=== PATIENT | female | born 1950 | race Caucasian/White ===

== ENCOUNTER 2018-12-12 14:50 | Day surgery (SDC) | payer OTHER ==
[2018-12-12] MEDS ORDERED: ACETAMINOPHEN 500 MG TAB PO ONE (15:40)
[2018-12-12] MEDS ORDERED: ceFAZolin 2 GM/DEXTROSE 100 ML IV ONE (15:40)
--- NOTE | 2018-12-12 17:11 | PDANEPAE ---
ANE History of Present Illness T12 compression fracture here for kyphoplasty ANE Past Medical History - Cardiovascular History Hx Hypertension: No Hx Arrhythmias: No Hx Chest Pain: No Hx Coronary Artery / Peripheral Vascular Disease: No Hx CHF / Valvular Disease: No Hx Palpitations: No - Pulmonary History Hx COPD: No Hx Asthma/Reactive Airway Disease: No Hx Recent Upper Respiratory Infection: No Hx Oxygen in Use at Home: No Hx Sleep Apnea: No Sleep Apnea Screening Result - Last Documented: Negative - Neurologic History Hx Cerebrovascular Accident: No Hx Seizures: No Hx Dementia: No - Endocrine History Hx Diabetes: No - Renal History Hx Renal Disorders: No - Liver History Hx Hepatic Disorders: No - Neurological & Psychiatric Hx Hx Neurological and Psychiatric Disorders: No - Cancer History Hx Cancer: Yes Cancer History Comment: breast ca- mastectomy only will start chemo after back procedure. 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 steriod injections previously ANE Review of Systems Review of Systems: - Exercise capacity METS (RN): 4 METS ANE Patient History - Allergies Allergies/Adverse Reactions: aspirin Allergy (Verified 12/12/18 16:21) nausea oxycodone Allergy (Verified 12/12/18 16:21) nausea - Home Medications Home Medications: Linzess 12/11/18 [Last Taken Unknown] Meloxicam 12/11/18 [Last Taken 12/11/18] Methocarbamol 12/11/18 [Last Taken Unknown] morphINE 12/11/18 [Last Taken Unknown] - NPO status NPO Status: no food or drink >8 hours NPO Since - Liquids (Date): 12/12/18 NPO Since - Liquids (Time): 13:00 NPO Since - Solids (Date): 12/12/18 NPO Since - Solids (Time): 07:00 - Anes Hx Anes Hx: no prior problems - Smoking Hx Smoking Status: Current some day smoker - Alcohol Use Alcohol Use: None - Family Anes Hx Family Anes Hx: none Family Hx Anesthesia Complications: none ANE Labs/Vital Signs - Vital Signs Blood Pressure: 169/99 Heart Rate: 76 Respiratory Rate: 16 O2 Sat (%): 91 Height: 160.02 cm Weight: 51.26 kg ANE Physical Exam - Airway Neck exam: FROM Mallampati Score: Class 2 Mouth exam: normal dental/mouth exam - Pulmonary Pulmonary: no respiratory distress, clear to auscultation - Cardiovascular Cardiovascular: regular rate and rhythym, no murmur, rub, or gallop - ASA Status ASA Status: III ANE Anesthesia Plan Anesthesia Plan: general endotracheal anesthesia
[2018-12-12] MEDS ORDERED: MIDAZOLAM 2 MG/2 ML VIAL IVP ONE (17:14)
[2018-12-12] MEDS ORDERED: BUPIVACAINE 0.25% 30 ML SDV ONE (17:16)
[2018-12-12] MEDS ORDERED: EPINEPHrine 1 MG/ML INJ ONE (17:16)
[2018-12-12] MEDS ORDERED: IOPAMIDOL (ISOVUE-M 300) 15 ML VIAL ONE (17:16)
[2018-12-12] MEDS ORDERED: BACITRACIN 50,000 UNITS/10 ML SYR IRR ONE (17:17)
[2018-12-12] MEDS ORDERED: LIDOCAINE 2% 100 MG/5 ML SYR ONE (17:19)
[2018-12-12] MEDS ORDERED: PROPOFOL 200 MG/20 ML VIAL ONE (17:19)
[2018-12-12] MEDS ORDERED: fentaNYL 100 MCG/2 ML INJ ONE (17:19)
--- NOTE | 2018-12-12 17:23 | PDHPUP ---
History & Physical Update H&P update statement: This history and physical update is based on an assessment of the patient which was completed after admission or registration (within 24 hours), but prior to the surgery/procedure. H&P update: H&P reviewed & patient examined, no change in patient's condition since H&P completed (discussed merits of doing T5 kypoplasty as well, but we will defer this to later as she does not have a lot of pain in this area)
[2018-12-12] MEDS ORDERED: DEXAMETHASONE 4 MG/ML VIAL ONE (18:23)
[2018-12-12] MEDS ORDERED: ONDANSETRON 4 MG/2 ML VIAL ONE (18:23)
[2018-12-12] MEDS ORDERED: METHOCARBAMOL 1,000 MG in NS 50 ML IVP PRN (18:23)
[2018-12-12] MEDS ORDERED: ONDANSETRON 4 MG/2 ML VIAL IVP PRN ×2 (18:23→18:26)
[2018-12-12] MEDS ORDERED: PROMETHAZINE HCL 25 MG/ML INJ IVP PRN (18:26)
[2018-12-12] MEDS ORDERED: HYDROmorphONE/DILAUDID 2 MG/ML INJ IVP PRN (18:26)
[2018-12-12] MEDS ORDERED: HYDROCODONE/APAP 5/325 TAB PO PRN (18:26)
[2018-12-12] MEDS ORDERED: ACETAMINOPHEN 500 MG TAB PO PRN (18:26)
[2018-12-12] MEDS ORDERED: NALOXONE HCL 0.4 MG/ML INJ IVP PRN (18:26)
--- NOTE | 2018-12-12 18:36 | POSTOPPROG ---
Post Op Note Date of Operation: 12/12/18 Surgeon: Fran Willard Mold Maker Plaster: none Anesthesiologist: Lilly Anesthesia: GET(General Endotracheal) Pre-op Diagnosis: T12 compression fx Post-op Diagnosis: same Indication: same Procedure: T12 balloon kyphoplasty Findings: successful kyphoplasty Inf/Abcess present in the surg proc area at time of surgery?: No EBL: Minimal Total fluids administered: per anesthesia Complications: none
--- NOTE | 2018-12-12 18:41 | POSTANESTH ---
Post Anesthetic Evaluation Cardiovascular Status: Normal, Stable, Similar to Pre-Op Cond Respiratory Status: Normal, Stable, Similar to Pre-op Cond. Level of Consciousness/Mental Status: Mildly Sleepy, Arousable Pain Control: Adequate, Prn Tx Ordered Nausea/Vomiting Control: Adequate, Prn Tx Ordered Complications Possibly Related to Anesthesia: None Noted
--- NOTE | 2018-12-12 18:50 | PDCONSULT ---
Blunger Machine Operator Note: NEUROSURGERY resting well in PACU, says her back feels better AAOx3 strength full, sensation normal dressings c/d/i POD#0 s/p T12 kyphoplasty - doing well - will d/c home, no major restrictions - office will call for followup Sudheer
--- NOTE | 2018-12-12 19:02 | GOP ---
[f rep st] OPERATIVE REPORT DATE OF OPERATION: 12/12/2018 SURGEON: Fran Willard MD NEUROSURGEON: Fran Willard MD. PET RESORT CONCIERGE: None. ANESTHESIA: General endotracheal. PREOPERATIVE DIAGNOSIS: T12 pathologic compression fracture. POSTOPERATIVE DIAGNOSIS: T12 pathologic compression fracture. PROCEDURE PERFORMED: T12 balloon kyphoplasty. FINDINGS: Successful kyphoplasty. SPECIMENS: Bilateral transpedicular biopsy of T12. ESTIMATED BLOOD LOSS: Blood loss was minimal. DESCRIPTION OF PROCEDURE: After informed consent was obtained from the patient, the patient was brou ght to the operating room and a formal time-out was performed, identifying the patient by name, medic al record number and date of . Preoperative antibiotics were given. Endotracheal tube was plac ed and general endotracheal anesthesia was smoothly induced. The patient was then turned to the pron e position on the Ki table. All appropriate pressure points were padded and checked. The lower thoracic region was then prepped and draped in the normal sterile fashion. AP and lateral x-rays we re used to confirm the entry points and trajectory to the pedicles of T12. About 10 mL of 0.25% Anand robby with epinephrine was infiltrated into the skin and subcutaneous tissues for hemostasis and posto perative analgesia over the T12 pedicles bilaterally. The 10-gauge access trocars were then used und er fluoroscopy to gain transpedicular access into the vertebral body of T12. Once this was confirmed using fluoroscopy, biopsies were taken through both pedicles and sent for permanent pathology. The kyphoplasty balloons were then placed and each balloon was inflated with nearly 3 mL of contrast unde r fluoroscopy to obtain a good fill. The balloons were then deflated and removed and the bone filler s were placed. 3 mL of methylmethacrylate cement was then infused through each trocar for a total of 6 mL into the T12 vertebral body. This obtained excellent interdigitation in the bone and across th e midline without any clear extravasation. At this point, there was good a fill. Therefore, the acc ess trocars were carefully backed out with care not to drag any cement in the soft tissues and then t hese were removed. More local anesthetic was placed into the area for postoperative analgesia and th e wounds were covered with Steri-Strips. The patient was then awakened in the operating room where s he was extubated and was transferred to the PACU in stable condition. There were no operative compli cations. I was scrubbed and present for the entire procedure. All sponge and needle counts were cor rect at the end of the case. BRIEF CLINICAL HISTORY: The patient is a 68-year-old woman who has non-Hodgkin lymphoma. She appear s to have pathologic compression fracture at T12, which is quite painful for her. 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 Ultimately, she failed bracing and we decided to proceed with biopsy and kyphoplasty. FLUIDS AND URINE OUTPUT: Per the Anesthesia record. /[id number]/MODL
[2018-12-12 20:44] VITALS: BP 148/89
== END 2018-12-12 20:38 | disposition home or self-care (01) ==
LOC: FSGY 14:50
PROVIDERS: ATTEND Neurological Surgery
PROC: BR171ZZ Fluoroscopy of Thoracic Spine using Low Osmolar Contrast (ICD-10-PCS; principal; 2018-12-12 16:30)
PROC: 0PU43JZ Supplement Thoracic Vertebra with Synthetic Substitute, Percutaneous Approach (ICD-10-PCS; principal; 2018-12-12 16:30)
PROC: 0PB43ZX Excision of Thoracic Vertebra, Percutaneous Approach, Diagnostic (ICD-10-PCS; principal; 2018-12-12 16:30)
DX: M84.48XA Pathological fracture, other site, initial encounter for fracture (principal); C90.00 Multiple myeloma not having achieved remission; F32.9 Major depressive disorder, single episode, unspecified; Z85.3 Personal history of malignant neoplasm of breast; Z90.11 Acquired absence of right breast and nipple
CPT/HCPCS: 22510; C1894; C1713; J0171; J0690; J1100; J2001; J2250; J2405; J2704; J3010; Q9967